=== PATIENT | male | born 1990 | race Caucasian/White ===

== ENCOUNTER 2016-08-12 11:24 | Emergency (ER) | payer SELFPAY ==
[~2016-08-12] VITALS: Ht 190.5 cm; Wt 93.0 kg
[2016-08-12 12:13] VITALS: BP 148/94
--- NOTE | 2016-08-12 12:51 | RAD ---
Right hand, 3 views, 08/12/2016: History: Trauma, injury No acute fracture or dislocation is identified. Mild deformity of the fifth metacarpal is probably due to old trauma. There is a small old nonunited ulnar styloid fracture. IMPRESSION: No acute bony abnormality is detected.
[2016-08-12] MEDS ORDERED: AMOX1TAB61 PO (13:17)
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
== END 2016-08-12 13:25 | disposition home or self-care (01) ==
LOC: ER 11:24 → EDSEX 11:24 → ER 13:25
DX: L03.011 Cellulitis of right finger (principal); M79.89 Other specified soft tissue disorders; W51.XXXA Accidental striking against or bumped into by another person, initial encounter; Y93.89 Activity, other specified; Y99.8 Other external cause status; Y92.89 Other specified places as the place of occurrence of the external cause
CPT/HCPCS: 73130; 99284